=== PATIENT | male | born 1995 | race Two or more races ===

== ENCOUNTER 2018-05-28 12:16 | Emergency (ER) | payer OTHER ==
[2018-05-28 13:10] VITALS: BP 140/88
--- NOTE | 2018-05-28 13:25 | UC ---
Upper Extremity HPI - HPI Summary HPI Summary: 23 year old male presents with complaints of right wrist pain. 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 Reports mild swelling and abrasion. Denies fever, chills, erythema, numbness or tingling. - History of Current Complaint Chief Complaint: UCUpperExtremity Stated Complaint: RIGHT HAND INJURY Time Seen by Provider: 05/28/18 12:58 Hx Obtained From: Patient Pain Intensity: 4 - Allergies/Home Medications Allergies/Adverse Reactions: Allergies Allergy/AdvReac Type Severity Reaction Status Date / Time No Known Allergies Allergy Verified 05/28/18 13:10 Home Medications: Home Medications NK [No Home Medications Reported] 05/28/18 [History Confirmed 05/28/18] PMH/Surg Hx/FS Hx/Imm Hx Previously Healthy: Yes - Denies significant PMH - Surgical History Surgical History: None Surgery Procedure, Year, and Place: denies - Family History Known Family History: Positive: Non-Contributory - Social History Occupation: Employed Full-time Lives: Alone Alcohol Use: Occasionally Substance Use Type: None Smoking Status (MU): Light Every Day Tobacco Smoker Review of Systems All Other Systems Reviewed And Are Negative: Yes Constitutional: Negative: Fever, Chills Respiratory: Positive: Negative Cardiovascular: Positive: Negative Gastrointestinal: Positive: Negative Genitourinary: Positive: Negative Motor: Negative: Weakness Neurovascular: Negative: Decreased Sensation Musculoskeletal: Positive: Other: - See HPI Neurological: Positive: Negative Is Patient Immunocompromised?: No Physical Exam - Summary Physical Exam Summary: GENERAL APPEARANCE: Well developed, well nourished, alert and cooperative, and appears to be in no acute distress. CARDIAC: Normal S1 and S2. No S3, S4 or murmurs. Rhythm is regular. There is no peripheral edema, cyanosis or pallor. Extremities are warm and well perfused. Capillary refill is less than 2 seconds. Peripheral pulses intact. LUNGS: Clear to auscultation without rales, rhonchi, wheezing or diminished breath sounds. ABDOMEN: Positive bowel sounds. Soft, nondistended, nontender. No guarding or rebound. No masses or hepatosplenomegally. MUSKULOSKELETAL: Mild tenderness and swelling noted to distal radial right wrist without gross deformity. There is some mild ecchymosis and a superficial abrasion at the site of injury. NEUROLOGICAL: Strength and sensation symmetric and intact. SKIN: Skin normal color, texture and turgor. Triage Information Reviewed: Yes Vital Signs: Initial Vital Signs Temp 98.7 F 05/28/18 13:04 Pulse 104 05/28/18 13:04 Resp 18 05/28/18 13:04 BP 140/88 05/28/18 13:04 Pulse Ox 100 05/28/18 13:04 Vital Signs Reviewed: Yes Diagnostics - Radiology No standard instances Radiology Interpretation Completed By: Radiologist Summary of Radiographic Findings: Patient Name: MINOR KENT Medical Record#: [id number]. Ordering Physician: Aldair Hutton NP Acct.#: [id number]. : 1995 Age: 23 Sex: M Location: [facility]. Exam Date: 1306 ADM Status: REG ER. Order Information: WRIST RIGHT 3+ VWS. Accession Number: [id number]. CPT: 88921. INDICATION: Crush injury RIGHT wrist. Laceration dorsal aspect. COMPARISON: None. TECHNIQUE: AP, lateral, and oblique views RIGHT wrist. REPORT AND IMPRESSION: #. Soft tissue swelling most prominent over the dorsal aspect of the distal forearm and wrist. No conspicuous foreign body or subcutaneous emphysema. Negative for fracture or malalignment. Upper Extremity Course/Dx - Course Course Of Treatment: 23 year old male presents with complaints of right wrist pain. 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 Reports mild swelling and abrasion. Denies fever, chills , erythema, numbness or tingling. Afebrile. VSS. Exam reveals adult male in no acute distress. Mild tenderness and swelling noted to distal radial right wrist without gross deformity. There is some mild ecchymosis and a superficial abrasion at the site of injury. X-ray showed no acute fracture. Symptoms likely a contusion of the wrist. Recommend conservative treatment with OTC anagesics and RICE. He is to follow up with occupational medicine in 7 days if symptoms do not improve. Warning symtoms reviewed with patient. Verbalizes understanding and agrees with POC. History, anticipatory guidance, and discharge teaching were performed through an interpretor. - Differential Dx/Diagnosis Differential Diagnosis/HQI/PQRI: Contusion, Fracture (Closed), Strain, Sprain Provider Diagnosis: Contusion of right wrist Discharge - Sign-Out/Discharge Documenting (check all that apply): Patient Departure All imaging exams completed and their final reports reviewed: Yes - Discharge Plan Condition: Stable Disposition: HOME Patient Education Materials: Contusion in Adults (ED) Print Language: TAMAZIGHT Referrals: No Primary Care Phys,NOPCP [Primary Care Provider] - Gio Soliz MD [Medical Doctor] - 7 Days (If no improvement in symptoms.) Additional Instructions: The x-ray performed in the clinic today showed no evidence of a fracture. I suspect that you have a contusion (bad bruise) of the wrist. Rest the arm as much as possible. Avoid activities that cause pain. Apply ice to the affected area for 15-20 minutes at least 4 times a day to help reduce pain and swelling. Keep the arm elevated to reduce swelling. Take over the counter ibuprofen (Advil, Motrin) 600 mg every 8 hours as needed for pain. Follow up with Dr. Soliz, occupational medicine, if symptoms do not improve in 7 days. Call for appointment. Seek immediate medical attention in the emergency room for pain that is not managed with pain medication, you lose function of the arm, have increased swelling, you develop numbness or tingling in the hand or fingers, or have any worsening of symptoms. - Billing Disposition and Condition Condition: STABLE Disposition: Home
== END 2018-05-28 14:30 | disposition home or self-care (01) ==
LOC: UCEAST 12:16
DX: S60.211A Contusion of right wrist, initial encounter (principal); W22.8XXA Striking against or struck by other objects, initial encounter; Y92.79 Other farm location as the place of occurrence of the external cause; Y99.0 Civilian activity done for income or pay; F17.200 Nicotine dependence, unspecified, uncomplicated
CPT/HCPCS: 99202; G0463